=== PATIENT | male | born 1970 | race Caucasian/White ===

== ENCOUNTER 2016-10-28 14:42 | Emergency (ER) | payer OTHER ==
[~2016-10-28] VITALS: Ht 182.9 cm; Wt 108.9 kg
[~2016-10-28 14:42] MED LIST: ACID CONTROL150 M2 PO; ALBUTEROL INH; BREO ELLIPTA 11 EAC1 IH; CYCLOBENZAPRINE10 M1 PO; EQUATE FIBER PO; IBUPROFEN200 M2; INCRUSE ELLI62.5 MCG IH; PROVENTIL HFA6.7 G1 IH; RANITIDINE PO; ZANTAC PO; ZITHROMAX250 M1 PO; [UNRECOGNIZED DRUG - OTHER]
[2016-10-28] MEDS ORDERED: HYDROCORTISO453.6 G4 TP (15:35)
[2016-10-28] MEDS ORDERED: MEDROL4 M2 PO (15:35)
== END 2016-10-28 15:47 ==
LOC: EDMED 14:42
DX: L08.0 Pyoderma (principal); J44.9 Chronic obstructive pulmonary disease, unspecified; Z87.891 Personal history of nicotine dependence; Z79.51 Long term (current) use of inhaled steroids